=== PATIENT | male | born 1995 | race Caucasian/White ===

== ENCOUNTER 2016-12-20 20:01 | Emergency (ER) | payer MEDICAID, OTHER ==
[~2016-12-20] VITALS: Ht 177.8 cm; Wt 65.8 kg
[2016-12-20 20:07] VITALS: BP 139/92
== END 2016-12-20 20:28 | disposition home or self-care (01) ==
LOC: ER 20:02
DX: K08.89 Other specified disorders of teeth and supporting structures (principal); F17.200 Nicotine dependence, unspecified, uncomplicated
CPT/HCPCS: A4606; Z7610